=== PATIENT | male | born 1980 | race Caucasian/White ===

== ENCOUNTER 2016-08-19 02:55 | Emergency (ER) | payer MEDICAID ==
[~2016-08-19] VITALS: Ht 177.8 cm; Wt 65.0 kg
[2016-08-19 02:59] VITALS: BP 116/72; PULSE 78; RESP 20; TEMP 98; O2SAT 99
[2016-08-19] MEDS ORDERED: HYDR-3516 PO (02:59)
[2016-08-19 03:02] VITALS: BP 124/82; PULSE 77; RESP 20; TEMP 98; O2SAT 98
[2016-08-19 03:35] LABS: AUTOMATED NEUTROPHIL # 3.1 TH/MM3 (1.8-7.7); BASOPHIL % 0.6 % (0.0-2.0); EOSINOPHIL # 0.1 TH/MM3 (0-0.4); EOSINOPHIL % 1.9 % (0.0-4.0); HEMATOCRIT 39.1 % (39.0-51.0); HEMO FLAGS DIFF FINAL; LYMPH % 34.2 % (9.0-44.0); LYMPHOCYTE # 1.9 TH/MM3 (1.0-4.8); MEAN CORPUSCULAR HEMOGLOBIN 31.3 PG (27.0-34.0); MEAN CORPUSCULAR HGB CONC 35.1 % (32.0-36.0); MONO % 6.4 % (0.0-8.0); NEUT % 56.9 % (16.0-70.0); PLATELET COUNT 140 TH/MM3 (150-450); RED BLOOD COUNT 4.39 MIL/MM3 (4.50-5.90); RED CELL DISTRIBUTION WIDTH 13.5 % (11.6-17.2); WHITE BLOOD COUNT 5.4 TH/MM3 (4.0-11.0)
[2016-08-19 03:49] LABS: BICARBONATE 29.6 MEQ/L (21.0-32.0); POTASSIUM 3.4 MEQ/L (3.5-5.1)
[2016-08-19 04:22] LABS: ALT (GPT) 23 U/L (12-78); ANION GAP 8 MEQ/L (5-15); AST (GOT) 10 U/L (15-37); BICARBONATE 28.1 MEQ/L (21.0-32.0); BLOOD UREA NITROGEN 9 MG/DL (7-18); CHLORIDE 109 MEQ/L (98-107); GLOMERULAR FILTRATION RATE 91 ML/MIN (>89); POTASSIUM 3.4 MEQ/L (3.5-5.1); SODIUM (NA) 145 MEQ/L (136-145)
[2016-08-19 04:24] LABS: ALKALINE PHOSPHATASE 89 U/L (45-117); TOTAL BILIRUBIN ADULT 0.3 MG/DL (0.2-1.0)
--- NOTE | 2016-08-19 04:53 | RADRPT ---
EXAM DATE/TIME: 08/19/2016 04:36 [place] COMPARISON: No previous studies available for comparison. INDICATIONS : Altered mental status; possible seizure. RADIATION DOSE: 56.35 CTDIvol (mGy) MEDICAL HISTORY : Seizures. SURGICAL HISTORY : None. ENCOUNTER: Initial ACUITY: 1 day PAIN SCALE: Non-responsive LOCATION: cranial TECHNIQUE: Multiple contiguous axial images were obtained of the head. Using automated exposure control and adj ustment of the mA and/or kV according to patient size, radiation dose was kept as low as reasonably a chievable to obtain optimal diagnostic quality images. FINDINGS: CEREBRUM: The ventricles are normal for age. No evidence of midline shift, mass lesion, hemorrhage or acute in farction. No extra-axial fluid collections are seen. POSTERIOR FOSSA: The cerebellum and brainstem are intact. The 4th ventricle is midline. The cerebellopontine angle i s unremarkable. EXTRACRANIAL: The visualized portion of the orbits is intact. SKULL: The calvaria is intact. No evidence of skull fracture. CONCLUSION: Negative noncontrast head CT. Efe Day MD on August 19, 2016 at 4:51 Board Certified Radiologist. This report was verified electronically.
--- NOTE | 2016-08-19 05:34 | PD ---
HPI Chief Complaint: Seizure Time Seen by Provider: 03:24 Travel History International Travel<30 days: No Contact w/Intl Traveler<30days: No Traveled to known affect area: No History of Present Illness HPI This is a 36-year-old male who presents to the emergency department having had an episode today witnessed by his where he was acting bizarrely, trying to put things the wrong places using objects incorrectly, and then subsequently having an episode where he was staring off into space. Afterwards he was sleepy and confused. His reports that he has a history of seizures. He's had 2 seizures in the past. He supposed to be on antiepileptic medication but he doesn't like the way it makes him feel so he doesn't take it. She doesn't think he uses any drugs. She says he has been more weak lately and not himself. The patient is not a good historian. He is sleepy and intermittently confused PFSH Past Medical History Diminished Hearing: No Immunizations Current: Yes Seizures: Yes Tetanus Vaccination: Unknown Influenza Vaccination: No Past Surgical History Surgical History: No Previous Surgery Social History Alcohol Use: Yes Tobacco Use: Yes Substance Use: No Allergies-Medications (Allergen,Severity, Reaction): Coded Allergies: Penicillin (Verified Allergy, Severe, Anaphylaxis, 08/19/16) Reported Meds & Prescriptions Reported Meds & Active Scripts Active Reported Hydrocodone-Acetaminophen 5-325 mg Tab 1 Tab PO Q4H PRN Review of Systems ROS Limitations: Poor Historian Physical Exam Narrative GENERAL: Thin, no acute distress SKIN: Warm and dry. HEAD: Atraumatic. Normocephalic. EYES: Pupils equal and round. No injection or drainage. ENT: Moist mucous membranes NECK: Trachea midline. CARDIOVASCULAR: Regular rate and rhythm. No murmur appreciated. RESPIRATORY: Clear to auscultation. Breath sounds equal bilaterally. GASTROINTESTINAL: Abdomen soft, non-tender, nondistended. MUSCULOSKELETAL: No obvious deformities. NEUROLOGICAL: Somnolent. Oriented to person and place. Says bizarre statements like he is going to get on a rock a chip. No obvious cranial nerve deficits. No dysarthria or aphasia. Uncooperative with neurologic exam. Data Data Last Documented VS Vital Signs Date Time Temp Pulse Resp B/P Pulse Ox O2 Delivery O2 Flow Rate FiO2 08/19/16 03:02 98.0 77 20 124/82 98 Orders Complete Blood Count With Diff (08/19/16 03:21) Basic Metabolic Panel (Bmp) (08/19/16 03:21) Comprehensive Metabolic Panel (08/19/16 03:31) Urinalysis - C+S If Indicated (08/19/16 03:31) Drug Screen, Random Urine (08/19/16 03:31) Alcohol (Ethanol) (08/19/16 03:31) Ct Brain W/O Iv Contrast(Rout) (08/19/16 ) Cath For Specimen (08/19/16 04:27) Labs Laboratory Tests Test 08/19/16 08/19/16 03:25 03:31 White Blood Count 5.4 TH/MM3 Red Blood Count 4.39 MIL/MM3 Hemoglobin 13.7 GM/DL Hematocrit 39.1 % Mean Corpuscular Volume 89.0 FL Mean Corpuscular Hemoglobin 31.3 PG Mean Corpuscular Hemoglobin 35.1 % Concent Red Cell Distribution Width 13.5 % Platelet Count 140 TH/MM3 Mean Platelet Volume 10.4 FL Neutrophils (%) (Auto) 56.9 % Lymphocytes (%) (Auto) 34.2 % Monocytes (%) (Auto) 6.4 % Eosinophils (%) (Auto) 1.9 % Basophils (%) (Auto) 0.6 % Neutrophils # (Auto) 3.1 TH/MM3 Lymphocytes # (Auto) 1.9 TH/MM3 Monocytes # (Auto) 0.3 TH/MM3 Eosinophils # (Auto) 0.1 TH/MM3 Basophils # (Auto) 0.0 TH/MM3 CBC Comment DIFF FINAL Differential Comment Sodium Level 144 MEQ/L 145 MEQ/L Potassium Level 3.4 MEQ/L 3.4 MEQ/L Chloride Level 108 MEQ/L 109 MEQ/L Carbon Dioxide Level 29.6 MEQ/L 28.1 MEQ/L Anion Gap 6 MEQ/L 8 MEQ/L Blood Urea Nitrogen 9 MG/DL 9 MG/DL Creatinine 0.94 MG/DL 0.94 MG/DL Estimat Glomerular Filtration 91 ML/MIN 91 ML/MIN Rate Random Glucose 89 MG/DL 91 MG/DL Calcium Level 8.2 MG/DL 8.3 MG/DL Total Bilirubin 0.3 MG/DL Aspartate Amino Transf 10 U/L (AST/SGOT) Alanine Aminotransferase 23 U/L (ALT/SGPT) Alkaline Phosphatase 89 U/L Total Protein 6.5 GM/DL Albumin 3.5 GM/DL Ethyl Alcohol Level LESS THAN 3 MG/DL MDM Medical Decision Making Medical Screen Exam Complete: Yes Emergency Medical Condition: Yes Interpretation(s) Afebrile, no tachycardia, normotensive No leukocytosis Mild hypokalemia Alcohol negative CT of the head is negative Differential Diagnosis Intracranial hemorrhage, electrolyte abnormality, alcohol intoxication, substance intoxication, seizure disorder Narrative Course This is a 36-year-old male who presents with altered mental status per his . She says he was acting bizarrely and then had a period where he was staring into space and she thought he had a seizure. Patient has been very sleepy since she's been here with dilated pupils. His presentation suggests substance intoxication but his family denies any illicit use of substances. He was placed on a monitor and an IV was established. Labs are obtained which were all reassuring and alcohol level is negative. CT of the head was negative. I reassessed the patient after a significant period of observation and he feels much better and his feels comfortable taking her home. I advised that they follow up with an outpatient neurologist. She knows to bring him back if he develops any new or worsening symptoms. Diagnosis Primary Impression: Altered mental status Qualified Code: R40.0 - Somnolence Patient Instructions: General Instructions Additional Instructions: If you develop severe chest pain, shortness of breath, sweating, lightheadedness , dizziness or difficulty breathing return to the emergency department immediately. Follow-up with a neurologist with a neurologist without fail. Med/Other Pt SpecificInfo: No Change to Meds Disposition: 01 DISCHARGE HOME Condition: Stable Genesis Field MD Aug 19, 2016 05:34
[2016-08-19 07:10] VITALS: BP 120/77; TEMP 97.8
== END 2016-08-19 07:10 | disposition home or self-care (01) ==
LOC: NEPC 02:55
DX: R41.82 Altered mental status, unspecified (principal); R56.9 Unspecified convulsions; Z72.0 Tobacco use; E87.6 Hypokalemia
CPT/HCPCS: 70450; 80048; 80053; 80320; 85025

== ENCOUNTER 2016-11-27 20:01 | Emergency (ER) | payer MEDICAID ==
[~2016-11-27] VITALS: Ht 188 cm; Wt 60.0 kg
[~2016-11-27 20:01] MED LIST: HYDR-3516 PO
[2016-11-27 20:04] VITALS: BP 110/76; PULSE 96; RESP 16; TEMP 99.1; O2SAT 99
[2016-11-27 20:31] VITALS: BP 125/82; PULSE 82; RESP 16; O2SAT 98
[2016-11-27] MEDS ORDERED: NABU1TAB37 PO (21:32)
--- NOTE | 2016-11-27 21:32 | PD ---
HPI . Bilateral leg pain Chief Complaint: Pain: Acute or Chronic Time Seen by Provider: 20:32 Travel History International Travel<30 days: No Contact w/Intl Traveler<30days: No Traveled to known affect area: No History of Present Illness HPI Patient presents complaining with bilateral leg pain. He states that it started a couple of days ago. He reports that his pain is exacerbated by cold. Pain is rated as 10/10. Pain has been unrelieved by Tylenol, Aleve and aspirin. Patient denies any history of cancer. He states that he has not been bedridden or immobilized in the recent past. PFSH Past Medical History Cerebrovascular Accident: Yes (CVA) Diminished Hearing: No Immunizations Current: Yes Seizures: Yes Tetanus Vaccination: Unknown Influenza Vaccination: Yes Past Surgical History Surgical History: No Previous Surgery Social History Alcohol Use: No Tobacco Use: Yes Substance Use: No Allergies-Medications (Allergen,Severity, Reaction): Coded Allergies: Penicillin (Verified Allergy, Severe, Anaphylaxis, 11/27/16) Reported Meds & Prescriptions Reported Meds & Active Scripts Active No Active Prescriptions or Reported Medications Review of Systems Except as stated in HPI: all other systems reviewed are Neg General / Constitutional: No: Fever, Chills Musculoskeletal: Positive: Myalgias, No: Edema Physical Exam Narrative GENERAL: Awake and alert and in no acute distress. SKIN: Warm and dry. Normal skin color and temperature. HEAD: Atraumatic. Normocephalic. EYES: Pupils equal and round. Extraocular movements are intact. NECK: Neck is supple. CARDIOVASCULAR: Regular rate and rhythm. Full and equal distal pulses. RESPIRATORY: No accessory muscle use. MUSCULOSKELETAL: No obvious deformities. No edema. No tenderness to palpation of the legs. NEUROLOGICAL: Awake and alert. No obvious cranial nerve deficits. Motor grossly within normal limits. Normal speech. PSYCHIATRIC: Appropriate mood and affect; insight and judgment normal. Data Data Last Documented VS Vital Signs Date Time Temp Pulse Resp B/P Pulse Ox O2 Delivery O2 Flow Rate FiO2 11/27/16 20:31 82 16 125/82 98 11/27/16 20:04 99.1 Room Air MDM Medical Decision Making Medical Screen Exam Complete: Yes Emergency Medical Condition: Yes Differential Diagnosis Differential diagnosis of leg pain includes but is not limited to lumbar radiculopathy, arthritis, myalgias, DVT. Narrative Course Patient presents complaining with bilateral leg pain. He has no physical exam findings. Wells criteria negative. Diagnosis Primary Impression: Bilateral leg pain Med/Other Pt SpecificInfo: Prescription(s) given Scripts Nabumetone 500 Mg [id number] Mg PO BID #60 TAB Ref 0 Prov:Joyce Desai MD 11/27/16 Disposition: 01 DISCHARGE HOME Condition: Stable Joyce Desai MD November 27, 2016 21:32
== END 2016-11-27 21:38 | disposition home or self-care (01) ==
LOC: NEPD 20:01
DX: M79.604 Pain in right leg (principal); M79.605 Pain in left leg; Z72.0 Tobacco use; Z86.79 Personal history of other diseases of the circulatory system; Z86.69 Personal history of other diseases of the nervous system and sense organs
CPT/HCPCS: 99283